=== PATIENT | male | born 1995 | race Caucasian/White ===

== ENCOUNTER 2018-11-11 18:42 | Emergency (ER) | payer SELFPAY ==
[~2018-11-11] VITALS: Ht 180.3 cm; Wt 86.2 kg
[2018-11-11 18:55] VITALS: BP 117/77
--- NOTE | 2018-11-11 19:32 | NUR ---
[facility] FROM A [facility] [employer]. PT IS AAOX4. BREATHING EVEN AND UNLABORED. NO RESP DISTRESS NOTED. AMBULATORY. BROUGHT IN D/T FOUND UNCONCSIOUS W/ LOW RESP RATE. RA REPORTS THAT O2 SA WAS 97% DESPITE LOW RATE. TO ER BED 14. PT REPORTS TAKING GHB, KETAMINE AND COCAINE. MD AT BEDSIDE BUT PT INSISTS ON GOING AMA DESPITE EXPLANINING RISK AND BENIFIT BY MD. PT SIGNED AMA.
--- NOTE | 2018-11-11 19:37 | NUR ---
PT ARRIVED WITH IV ON R AC 18G. REMOVED PRIOR TO DEPARTURE
== END 2018-11-11 19:46 | disposition left against medical advice (07) ==
LOC: ER 18:44
DX: T41.291A Poisoning by other general anesthetics, accidental (unintentional), initial encounter (principal); F19.10 Other psychoactive substance abuse, uncomplicated; Y92.89 Other specified places as the place of occurrence of the external cause